=== PATIENT | male | born 1975 | race Caucasian/White ===

== ENCOUNTER → 2017-01-15 | Day surgery (SDC) | payer OTHER ==
[~2017-01-15] VITALS: Ht 188 cm; Wt 110.7 kg
--- NOTE | 2017-01-15 10:21 | Operative Report ---
Operative/Inv Procedure Report Surgery Date: 01/15/17 Name of Procedure: 1) Excision volar ganglion cyst right wrist area 2) Right open carpal tunnel release. Pre-Operative Diagnosis: 1) Right wrist volar ganglion cyst. 2) Right carpal tunnel syndrome. Post-Operative Diagnosis: Same. Estimated Blood Loss: scant Surgeon/Forestry Aid Technician: SILVANA SCHULTZ MD Anesthesia: laryngeal mask airway Monitors: EKG/blood pressure/oxygen saturation. IV Fluids: Lactated Ringer's. Implants: None. Urine Output: None. Drains: None. Specimens: Volar ganglion cyst excised in 2 parts and sent to pathology in formalin. Microbiology: None. Tourniquet: 79 minutes at 275 mmHg. Complications: None known. Condition: Stable. Operative Indication: The patient is a 41-year-old male with a several year history of progressive bilateral hand numbness and tingling consistent with median neuropathy at the wrists (carpal tunnel syndrome). More recently over the past several months he has been developing an intermittently tender mass of the right volar-radial wrist. The mass visually was in typical location for a volar ganglion cyst. An ultrasound examination of the wrist at the time of the patient's first office visit did confirm the mass to be cystic. The patient ultimately failed conservative management and remained symptomatic with median neuropathy symptoms of the bilateral hands, right greater than left. In addition he was displeased with the presence of the mass at the right volar-radial wrist even though the mass was only minimally uncomfortable. We did ultimately get bilateral upper extremity EMG/NCS studies which confirmed moderate median neuropathy at the bilateral wrists involving both motor and sensory components of the bilateral median nerves. Having failed conservative management for carpal tunnel syndrome we did discuss moving on to surgical intervention with an open carpal tunnel release. The patient inquired as to whether or not I would be able to remove the volar ganglion cyst from the wrist since he would be having surgery anyway. We did confirm adequate vascular inflow to the hand on Rocco's test even in the case should the patient sustained an iatrogenic injury to the radial artery. We did discuss the risks and benefits and expected outcomes of open carpal tunnel release as well as excision of his right wrist volar ganglion cyst. With respect to the cyst this discussion included but was not limited to potential vascular injury to the main radial artery and the divisions of the radial artery. We did discuss the distinct possibility of recurrence of the ganglion cyst given that volar wrist ganglion cysts arise from deeper structures with more variable sites of origin all while risking neurovascular injury. After discussion of the above the patient did ultimately decided he would like to move forward with surgery including an open carpal tunnel release as well as excision of his right wrist volar ganglion cyst. I did indicate to the patient that I would plan the surgical incision to connect the 2 incisions making them one larger incision allowing me to work on both conditions at the same time. All the patient's questions are answered at length and he did still wish to move forward with surgery and surgical consent was obtained. Operative/Procedure Note Note: The patient was brought to the operating room and placed on the operating table in the supine position. General anesthesia via LMA was induced by the crap shooter. The patient was given a dose of IV antibiotics for infection prophylaxis. All bony prominences were well-padded. We did place a well-padded tourniquet about the right upper arm. The right upper extremity was then prepped and draped in usual sterile fashion. The patient's right distal volar forearm and palm-wrist were marked the planned surgical incision. This included making a curved longitudinal incision extending distally from the level of a line drawn in line with the ulnar border of the radially abducted thumb across the palm. That incision was then placed into the patient's natural skin folds which were essentially near the ulnar base of the thenar eminence and the skin marking was brought proximally to the level of the volar wrist flexion creases. The skin marking was then brought obliquely across the wrist creases to the radial side of the wrist and then propagated longitudinally over the volar ganglion cyst and radial to the FCR tendon sheath for a distance of about 5-6 cm. Once the skin was marked the extremity was exsanguinated and the pneumatic tourniquet was inflated to a pressure of 275 mmHg. The skin incision was created delicately with a #15 scalpel blade. We began working on approach to the volar ganglion cyst first. We used the longitudinal proximal component of the skin marking for the incision as well as the oblique component of the skin marking coming across the volar wrist skin flexion creases. Sharp dissection continued down through the skin and superficial subcutaneous tissues. Hemostasis was achieved using a needle-tipped electrocautery. After that dissection was with blunt tipped scissors to spread the deep subcutaneous tissues. We did get some visualization of the volar ganglion cyst as a mass but I could not at this time appreciate where the radial vessels were lying in relationship to the ganglion cyst. We therefore turned our attention to the proximal aspect of the wound where we meticulously dissected out the radial vessels trying to protect the venae committante traveling with the radial artery in addition to protecting the radial artery itself. A vessel loop was placed about the radial artery allowing us to help identify the radial artery and provide some traction on the radial artery to help with additional soft tissue dissection. We next meticulously dissected in a proximal to distal direction freeing up the radial artery. The radial artery did split to the deep radial artery branch and the more superficial radial artery branch. At this junction we encountered the ganglion cyst. The superficial radial artery was not visible as it was being tented from below by the ganglion cyst. With meticulous dissection we were able to elevate the superficial branch of the radial artery off of the underlying volar ganglion cyst and place the vessel loops appropriately to allow visualization of the superficial branch of the radial artery and protect the radial artery and keep it out of the way from deeper dissection. We ultimately did the same with dissecting out the deep radial artery. With both major branches of the radial artery dissected free after being identified and mobilized we had better visualization of the volar ganglion cyst. The cyst was dissected out using blunt tip dissection with limited bipolar electrocautery dissection while applying traction to the cyst with Allis clamps. The dissection worked circumferentially about the cyst. The cyst dived quite deeply and proved to be a multiloculated cyst extending in several different directions but with the stalk of the cyst ultimately diving deeply and distally to the scaphoid trapezial joint. Once again while protecting the radial vessels we dissected the cyst out from the surrounding soft tissues coming down to the radial scaphoid and scaphoid trapezial joint capsules. After the cyst was elevated from the radius scaphoid joint capsule use the electrocautery to 'scarify' this area of the wrist capsule to minimize risk of recurrence of the cyst. We continued to dissect further distally and ultimately excised the stalk of the cyst from the scaphoid trapezial joint. The cyst was passed off the field to be sent to pathology for documentation. We used electrocautery in similar fashion to 'scarify' the joint about the scaphoid trapezial joint. Of note in order to accomplish complete excision of the stalk coming through the scaphotrapezial joint capsule a limited amount of joint capsule didn't need to be removed exposing the joint itself. The margins of the capsule dissection were scarred up with the electrocautery as well as the surrounding capsular tissue and all directions. The radial vessels were allowed to fall back into normal approximation. We now turned our attention towards performing the carpal tunnel release. The skin incision for the distal 1/3-1/2 of the wound that had not yet been opened was now created again with a #15 scalpel blade. Sharp dissection continued down through the skin and subcutaneous tissues. A self-retaining retractor was placed. We now had visualization of the longitudinal fibers of the palmar fascia. These were divided longitudinally in line with the skin incision sharply using a scalpel. The self retaining retractor was positioned more deeply. I next scraped some of the ulnar attachment base of the thenar musculature in an ulnar to radial direction to help obtain visualization of the underlying transverse fibers of the transverse carpal ligament. We also did the same working in an ulnar direction. With good visualization of the central portion of the transverse carpal ligament now obtained retractors were placed deeper to maintain visualization. The transverse carpal ligament was then divided longitudinally in line with the skin incision very delicately using a # 15 scalpel blade. The most proximal and distal margins of the transverse ligament were divided using the tips of curved tenotomy scissors to ensure complete division of the ligament. The underlying median nerve appeared to be hypovascular. I did appreciate some scar tissue and hypertrophic epineural tissue and flexor tenosynovial tissue about the median nerve. I did free this tissue up from the median nerve itself and I did perform a very limited epineurotomy of the volar aspect of the median nerve from the distal forearm to the distal end of the previously divided transverse carpal ligament. The epineurial tissue was reflected slightly in a radial and ulnar direction. The dorsal aspect of the epineurial tissue was left intact so as to not completely strip the epineurial tissue off of the median nerve. The median nerve after limited epineurotomy showed improved micro-vascularity with the nerve pinking up after the dissection and freeing of the median nerve completely. We did also free up the first motor recurrent branch of the median nerve to make sure that that was dissected out and freed as well. With the median nerve now decompressed and with the volar ganglion cyst successfully excised attention was directed towards closure. The tourniquet was deflated and hemostasis was achieved with a combination of manual pressure and limited electrocautery. The wound was copiously irrigated multiple times with saline. The soft tissue structures deep to the skin were allowed to fall into their normal position. The soft tissue repair consisted of direct approximation of the skin margins using 3-0 Prolene placed in interrupted simple fashion. The skin margins were then infiltrated with a total of 10 mL of 0.25% plain Marcaine to help with prolonged postoperative pain relief. The patient's wound was washed and dried and then covered with an Adaptic nonadherent dressing. Sterile gauze dressings were applied over this followed by sterile Kerlix gauze wrap to hold the gauze dressings in place. The extremity was then wrapped from the distal palmar crease distally to the mid forearm proximally with labral cast padding. A 3 inch fiberglass volar wrist splint was applied and held in place with Curtis bandages and allowed to set up with the wrist in neutral position. The right upper extremity was placed into a Denys pillow for elevation. The patient was awakened from general anesthesia and brought to the recovery room in stable condition having tolerated the procedure well.
== END ==
LOC: STS 02:27
DX: G56.01 Carpal tunnel syndrome, right upper limb (principal); M67.431 Ganglion, right wrist
CPT/HCPCS: 88304; J2250

== ENCOUNTER → 2017-02-26 | Day surgery (SDC) | payer OTHER ==
[~2017-02-26] VITALS: Ht 188 cm; Wt 108.9 kg
--- NOTE | 2017-02-26 09:42 | Operative Report ---
Operative/Inv Procedure Report Surgery Date: 02/26/17 Name of Procedure: Left open carpal tunnel release. Pre-Operative Diagnosis: Left carpal tunnel syndrome. Post-Operative Diagnosis: Same. Estimated Blood Loss: scant Surgeon/Credit Products Officer: SILVANA SCHULTZ MD Anesthesia: laryngeal mask airway Monitors: EKG/blood pressure monitoring/oxygen saturation IV Fluids: Lactated Ringer's. Implants: None. Urine Output: None. Drains: None. Specimens: None. Microbiology: None. Tourniquet: 12 minutes at 275 mmHg. Complications: None known. Condition: Stable. Operative Indication: The patient is a 41-year-old male who has been worked up for bilateral hand symptoms which by history and clinical examination and ultimately electrodiagnostic testing were consistent with bilateral carpal tunnel syndrome. The patient also had a contralateral right wrist volar ganglion cyst. After failure of conservative management we did decide to move on to bilateral hand and wrist surgery. The patient did undergo a successful contralateral right open carpal tunnel release with the incision extended to the volar distal forearm for ganglion cyst excision roughly 1 month ago. The patient decided that he wanted to move forward as was originally planned with the staged surgery now for the left hand which is limited to a carpal tunnel release. We did briefly review the risks and benefits and expected outcomes once again of nonoperative management versus that of operative intervention. All the patient' s questions were answered at length. As per the original plan as well as the fact that he has responded nicely so far to contralateral right carpal tunnel release the patient did decide that he would like to move forward with left open carpal tunnel release and therefore surgical consent was obtained. Operative/Procedure Note Note: The patient was brought to the operating room and placed on the operating room in the supine position. All bony prominences were well padded. The patient was given a dose of IV antibiotics for infection prophylaxis. General anesthesia was then induced by the anesthesiologist. A well-padded tourniquet was applied to the proximal portion of the left arm. The left upper extremity was then prepped and draped in the usual sterile fashion. The palm was marked for a planned volar approach to the carpal canal. This included marking the skin with a skin marker across the palm in line with the ulnar border of the radially abducted thumb. A second skin marking was made with a skin marker along the palm in line with the ulnar border of the middle finger. The intersection of these two lines was anticipated to be roughly the distal margin of the underlying transverse carpal ligament. The skin was marked for the actual palmar skin incision using the patient's natural skin creases running as close as possible from the point of intersection of these two lines in a distal to proximal direction to the level of the distal volar wrist skin flexion crease. The extremity was exsanguinated and the pneumatic tourniquet was inflated to a pressure of 275 mm Hg. The skin incision was then made with a #15 scalpel blade. Sharp dissection was carried down through the skin and subcutaneous tissue with scalpel dissection. Hemostasis was achieved with a combination of manual pressure and electrocautery. Retractors were placed in to the wound and the longitudinal fibers of the palmar fascia were visualized. The palmar fascia was then divided under direct visualization longitudinally in line with the skin incision. Retractors were repositioned deeper in to the wound and the divided palmar fascia was scraped in a radial and ulnar direction off of the underlying transverse carpal ligament. The transverse carpal ligament was then divided longitudinally in line with the skin incision under direct visualization using a scalpel to divide the central portion of the ligament and then using blunt tipped scissors to complete the division of the proximal and distal margins of the ligament after spreading the soft tissues directly above and below the ligament at these locations to isolate the fibers of the ligament. Inspection of the contents of the carpal canal was possible after division of the transverse carpal ligament and teasing the undersurface of the transverse carpal ligament away from underlying adhesions to the contents of the carpal canal. Inspection of the Median nerve within the carpal canal showed the nerve to be slightly constricted but significantly hypovascular. The surrounding flexor tendons did show very slight swelling consistent with tenosynovitis. A limited epineurotomy of the volar aspect of the Median nerve epineural tissue was performed using blunt tipped scissors to spread the volar epineural tissue. This visually decompressed the hourglass constriction of the nerve but did not at this time overtly improve the micro-vascularity to the nerve. With the carpal canal and Median nerve now adequately decompressed, our attention was directed to closure. The wound was irrigated multiple times with saline. The tourniquet was deflated and hemostasis was achieved once again with manual pressure and electrocautery. The soft tissue repair consisted of direct approximation of the skin margins using 3-0 Prolene placed in interrupted simple fashion. The wound was washed and dried. Adaptic dressing was placed over the suture line followed by a bulky gauze dressing followed by gauze wraps to hold the gauze dressing in place. The gauze dressings were then held in place with a 2 inch Curtis bandage which was applied just snug enough to hold the dressings in place and to provide gentle compression to the palmar wound after surgery. The left upper extremity was placed into a Denys pillow for elevation. The patient was awakened from general anesthesia and then transferred to the hospital stretcher and then brought to the recovery room in stable condition having tolerated the procedure well.
== END ==
LOC: STS 01:32
DX: G56.02 Carpal tunnel syndrome, left upper limb (principal); G47.33 Obstructive sleep apnea (adult) (pediatric)
CPT/HCPCS: J0131; J1885; J2250